=== PATIENT | male | born 1995 | race Hispanic/Latino ===

== ENCOUNTER 2016-11-13 12:26 | Emergency (ER) | payer SELFPAY ==
[~2016-11-13] VITALS: Ht 172.7 cm; Wt 80.0 kg
[2016-11-13] MEDS ORDERED: AMOXICILLIN500 MG PO (13:18)
[2016-11-13 13:22] VITALS: BP 144/93
== END 2016-11-13 13:32 | disposition home or self-care (01) | DRG 603 ==
LOC: ED 12:26
DX: L01.00 Impetigo, unspecified (principal)

== ENCOUNTER 2016-12-27 18:15 | Emergency (ER) | payer SELFPAY ==
[~2016-12-27] VITALS: Ht 172.7 cm; Wt 70.0 kg
[~2016-12-27 18:15] MED LIST: AMOXICILLIN500 MG PO
[2016-12-27] MEDS ORDERED: ULTRAM50 M1 PO (20:42)
[2016-12-27 20:58] VITALS: BP 129/74
== END 2016-12-27 20:58 | disposition home or self-care (01) | DRG 563 ==
LOC: ED 18:15
DX: S86.911A Strain of unspecified muscle(s) and tendon(s) at lower leg level, right leg, initial encounter (principal); V19.49XA Pedal cycle driver injured in collision with other motor vehicles in traffic accident, initial encounter; Y93.55 Activity, bike riding; Y92.481 Parking lot as the place of occurrence of the external cause